=== PATIENT | male | born 1990 | race Caucasian/White ===

== ENCOUNTER 2024-02-22 15:57 | Emergency (ER) | payer OTHER, SELFPAY ==
[2024-02-22] VITALS (15 sets, daily range): BP systolic 125–158; BP diastolic 75–106; PULSE 56–73; RESP 16–20; TEMP 36.6; O2SAT 95–100; BMI 29.8
--- NOTE | 2024-02-22 16:11 | CRLHL7_ITS ---
For Patients: As a result of the Century Cures Act, medical imaging exams and procedure reports are released immediately into your electronic medical record. You may view this report before your referring provider. If you have questions, please contact your health care provider. INDICATION: PERIUMBILICAL PAIN CT ABDOMEN AND PELVIS WITH CONTRAST TECHNIQUE: Multidetector CT imaging was performed through the abdomen and pelvis following intravenous contrast administration using 108 mL Isovue 370. Coronal and sagittal reconstructions were generated. COMPARISON: None. FINDINGS: Lower chest: Trace amount of basilar atelectasis. Liver: Unremarkable aside from a tiny hypodensity in the right hepatic lobe on image 22 of series 2 which is not well characterized but likely benign. Gallbladder and bile ducts: No gallbladder wall thickening or calcified gallstones. No biliary dilation identified. Pancreas: Unremarkable. Spleen: Normal. Adrenals: No nodules or masses. Kidneys, ureters, and urinary bladder: No renal masses or hydronephrosis. No bladder mass or definite wall thickening. Gastrointestinal tract: Normal caliber bowel without wall thickening or obstruction. The appendix is normal. Abdominal wall: Tiny fat-containing umbilical hernia. Vascular structures: Normal for age. Peritoneum: No free air, abscess, or significant free fluid. Lymph nodes: No pathologically enlarged nodes identified. Reproductive organs: No pelvic masses. Bones: Normal for age. IMPRESSION: No acute abnormality identified. No cause for the patient`s symptoms is demonstrated. ELGIN CADET MD [facility] Dictated by Artur Cadet MD @ 02/22/2024 7:02:41 PM Please note that all CT scans at this facility use dose modulation, iterative reconstruction, and/or weight-based dosing when appropriate to reduce radiation dose to as low as reasonably achievable. Dictated by: Artur Cadet MD @ 02/22/2024 19:03:55 (Electronically Signed)
[2024-02-22 16:22] LABS: Lactate* 1.3 mmol/L (0.5-1.9)
[2024-02-22 16:25] LABS: Basophils Absolute Auto 0.01 K/uL (0.00-0.30); Basophils Percent Auto 0.1 % (0.0-3.0); Eosinophils Absolute Auto 0.01 K/uL (0.00-0.50); Eosinophils Percent Auto 0.1 % (0.0-7.0); Hematocrit 44.7 % (37.0-53.0); Hemoglobin* 16.3 gm/dL (13.5-17.5); Immature Granulocytes Abs Auto 0.09 K/uL (0.00-0.30); Immature Granulocytes Pct Auto 1.1 %; Lymphocytes Percent Auto 11.9 % (20-44); Mean Corpuscular HGB Conc 37 gm/dL (32-36); Mean Corpuscular Hemoglobin 29 pg (26-34); Mean Corpuscular Volume 79 fL (80-100); Monocytes Percent Auto 6.6 % (0.0-11.0); Neutrophils Percent Auto 80.2 % (42.0-72.0); Platelet Count* 312 K/uL (140-440); Red Blood Count 5.63 m/uL (4.30-5.90); White Blood Count* 7.98 K/uL (4.50-11.00)
[2024-02-22 16:29] LABS: Slide Review Reflex No
[2024-02-22] MEDS: 0.9 % SODIUM CHLORIDE 1000 ml 1,000 ML IV (16:35)
[2024-02-22] MEDS: MORPHINE 2 MG/ML inj IVP ×2 (16:35→18:08)
--- NOTE | 2024-02-22 16:35 | ED.GENADULT ---
HPI - General Adult General Chief complaint: Abdominal Pain Stated complaint: Suspected pancreatitis Time Seen by Provider: 02/22/24 15:59 Source: patient Mode of arrival: ambulatory Limitations: no limitations History of Present Illness HPI narrative: 33-year-old male coming in today complaining of abdominal pain that started yesterday. Pain is located in the periumbilical region. Does not radiate. Eating makes it worse. He has vomited twice now once yesterday once today. He denies any diarrhea. No blood in his stools or vomit. He denies any fevers or chills. He states that several years ago he had an episode of ?mild pancreatitis. He feels that the pain is similar but feels worse this time around. He denies any intra-abdominal surgeries in the past. He does state that he drinks socially however in the last 2 weeks he states he has been drinking 4 beers every night, this is well above his usual. He does not take any daily medications. Related Data Previous Rx's ?Medication ?Instructions ?Recorded ketorolac 10 mg tablet 10 mg PO TID PRN pain 3 days #9 02/22/24 tabs sucralfate 1 gram tablet (Carafate) 1 g PO QID PRN #30 tabs 02/22/24 Allergies Allergy/AdvReac Type Severity Reaction Status Date / Time No Known Drug Allergies Allergy Verified 02/22/24 17:27 Review of Systems Status of ROS: Reports: 10 or more systems reviewed and unremarkable except as noted in History and below Exam Narrative: Exam Narrative: Well-nourished well-developed patient moaning with a pillow over his face when I enter the room. Alert and oriented x3. Answers questions appropriately. Mood is appropriate. Thoughts are goal oriented and rational. No tangential or magical thinking noted. Patient speaks in full sentences without needing to catch his breath. HEENT: Normocephalic atraumatic. Pupils are equally round reactive to light. Extraocular muscles are intact. Conjunctivae are moist without any icterus noted. Moist mucous membranes. Posterior pharynx is normal. Neck is soft without any lymphadenopathy or thyromegaly. No masses are appreciated. Cardiovascular: Heart is regular rate and rhythm S1 and S2 are present without any murmurs. Lungs: Clear to auscultation bilaterally no wheezes rhonchi or rales are appreciated. Patient takes deep breaths without any discomfort. Abdomen: Soft and nondistended with slightly hypoactive bowel sounds. He does have a right-sided periumbilical tenderness, tenderness at McBurney's point. He has no right upper quadrant or right lower quadrant tenderness, no suprapubic pain or pain on the left side of the abdomen. He does have rebound tenderness. He also has discomfort with tapping of his feet. Extremities: Bilateral lower extremities are without edema. Skin: Well perfused without any obvious rashes. Const: Vital Signs, click to edit/add: Vital Signs - 24 hr 02/22/24 16:04 02/22/24 16:20 02/22/24 16:22 Temperature 97.9 F Pulse Rate 63 73 Pulse Rate [Pulse Oximeter] 69 Respiratory Rate 20 18 Blood Pressure 152/92 H Blood Pressure [Ri ght Upper Arm] 152/95 H Pulse Oximetry 100 100 100 Oxygen Delivery Me thod Room Air Room Air Room Air 02/22/24 16:30 02/22/24 16:36 02/22/24 17:00 Temperature Pulse Rate 63 67 56 L Pulse Rate [Pulse Oximeter] Respiratory Rate 16 Blood Pressure 150/75 H Blood Pressure [Ri ght Upper Arm] Pulse Oximetry 100 100 96 Oxygen Delivery Me thod Room Air Room Air Room Air 02/22/24 17:02 02/22/24 17:03 02/22/24 17:30 Temperature Pulse Rate 56 L 63 65 Pulse Rate [Pulse Oximeter] Respiratory Rate 18 Blood Pressure 146/80 H Blood Pressure [Ri ght Upper Arm] Pulse Oximetry 96 95 99 Oxygen Delivery Wv thod Room Air Room Air Room Air 02/22/24 17:32 02/22/24 18:31 02/22/24 18:32 Temperature Pulse Rate 69 57 L 57 L Pulse Rate [Pulse Oximeter] Respiratory Rate 18 Blood Pressure 125/106 H 158/97 H Blood Pressure [Ri ght Upper Arm] Pulse Oximetry 97 100 100 Oxygen Delivery Me thod Room Air Room Air Room Air Course Course ED Course: IV is established and patient given morphine and Zofran. Labs were ordered: Normal lactate CBC is unremarkable. Chemistries are unremarkable. LFTs are unremarkable. Normal lipase. CRP is less than 0.5. The patient stated that his pain was uncontrollable and requested more morphine so another 2 mg of morphine was given. Results of the abdominal CT returned, entirely normal. Discussed results with the patient who is very upset that nothing was found. He is also upset that he is not being sent home on pain medications. We discussed that we will send him home on Carafate and he should start omeprazole for potential gastritis. Patient requesting narcotic pain medications which is not indicated at this time. Vital Signs Vital signs: Initial Vital Signs Temperature 97.9 F 02/22/24 16:04 Temperature Source Temporal Artery Scan 02/22/24 16:04 Pulse Rate 69 02/22/24 16:04 Respiratory Rate 20 02/22/24 16:04 Blood Pressure 152/95 H 02/22/24 16:04 Blood Pressure Mean 114 H 02/22/24 16:04 Blood Pressure Position Sitting 02/22/24 16:04 Pulse Oximetry 100 02/22/24 16:04 Oxygen Delivery Method Room Air 02/22/24 16:04 Vital Signs Temperature 97.9 F 02/22/24 16:04 Pulse Rate 69 02/22/24 16:04 Respiratory Rate 20 02/22/24 16:04 Blood Pressure 152/95 H 02/22/24 16:04 Pulse Oximetry 100 02/22/24 16:04 Oxygen Delivery Method Room Air 02/22/24 16:04 Temperature 97.9 F 02/22/24 16:04 Pulse Rate 57 L 02/22/24 18:32 Respiratory Rate 18 02/22/24 18:32 Blood Pressure 158/97 H 02/22/24 18:32 Pulse Oximetry 100 02/22/24 18:32 Oxygen Delivery Method Room Air 02/22/24 18:32 Medications Administered Medications: Discontinued Medications Generic Name Dose Route Start Last Admin Trade Name Freq PRN Reason Stop Dose Admin Sodium Chloride 1,000 mls @ 1,000 mls/hr 02/22/24 16:15 02/22/24 19:06 0.9 % Sodium Chloride 1000 Ml IV 02/22/24 17:14 Infused .Q1H PRICE Infusion Morphine Sulfate 2 mg 02/22/24 16:11 02/22/24 16:35 Morphine 2 Mg/Ml Inj IVP 02/22/24 16:12 2 mg ONCE ONE Administration Morphine Sulfate 2 mg 02/22/24 17:53 02/22/24 18:08 Morphine 2 Mg/Ml Inj IVP 02/22/24 17:54 2 mg ONCE ONE Administration Ondansetron HCl 4 mg 02/22/24 16:39 02/22/24 16:42 Ondansetron 2 Mg/Ml Inj IVP 02/22/24 16:40 4 mg ONCE ONE Administration Ondansetron HCl 2 mg 02/22/24 17:58 02/22/24 18:06 Ondansetron 2 Mg/Ml Inj IVP 02/22/24 17:59 2 mg ONCE ONE Administration Medical Decision Making MDM Narrative Medical decision making narrative: 33-year-old male with abdominal pain of unclear etiology. There are no laboratory or imaging abnormalities to suggest any life-threatening diagnoses today. We discussed the possibility of peptic ulcer disease, gastritis. At this time recommend symptomatic treatment. Patient will be sent home with Carafate and omeprazole. We discussed follow-up if things worsen. Patient was in agreement and had no other questions. Lab Data Lab results reviewed: Yes I reviewed the patient's lab results Labs: Lab Results 02/22/24 02/22/24 02/22/24 Range/Units 16:15 16:34 19:05 WBC 7.98 (4.50-11.00) K/uL RBC 5.63 (4.30-5.90) m/uL Hgb 16.3 (13.5-17.5) gm/dL Hct 44.7 (37.0-53.0) % MCV 79 L (80-100) fL MCH 29 (26-34) pg MCHC 37 H (32-36) gm/dL RDW Coeff of Maryellen 12.0 (11.5-15.5) % Plt Count 312 (140-440) K/uL Neut % (Auto) 80.2 H (42.0-72.0) % Lymph % (Auto) 11.9 L (20-44) % O'Brien % (Auto) 6.6 (0.0-11.0) % Eos % (Auto) 0.1 (0.0-7.0) % Baso % (Auto) 0.1 (0.0-3.0) % Neut # (Auto) 6.40 (1.7-7.0) K/uL Lymph # (Auto) 0.90 (0.90-2.90) K/uL O'Brien # (Auto) 0.50 (0.00-0.90) K/UL Eos # (Auto) 0.01 (0.00-0.50) K/uL Baso # (Auto) 0.01 (0.00-0.30) K/uL Abs Immat Gran (auto) 0.09 (0.00-0.30) K/uL Imm/Tot Granulo (auto) 1.1 % Sodium 135 (135-149) mmol/L Potassium 3.8 (3.6-5.1) mmol/L Chloride 102 (96-114) mmol/L Carbon Dioxide 25 (20-32) mmol/L Anion Gap 8 (7-15) mEq/L BUN 15 (5-24) mg/dL Creatinine 0.9 (0.5-1.5) mg/dL Estimated Creat Clear 129.33 Estimated GFR 116 ml/min Glucose 119 H (60-115) mg/dL Lactate 1.3 (0.5-1.9) mmol/L Calcium 9.6 (8.4-10.6) mg/dL Total Bilirubin 1.1 (0.1-1.5) mg/dL Direct Bilirubin 0.4 (0.0-0.5) mg/dL AST 37 H (12-35) U/L ALT 42 (4-50) U/L Alkaline Phosphatase 82 (40-150) U/L C-Reactive Protein < 0.5 L (0.5-1.0) mg/dL Total Protein 7.4 (6.0-8.3) g/dL Albumin 5.0 (3.3-5.0) g/dL Lipase 53 (23-300) U/L Urine Color Yellow (Yellow) Urine Appearance Clear (Clear) Urine pH 6.5 (5.0-8.5) Ur Specific [place] <= 1.005 (1.000-1.030) Urine Protein Negative (Negative) Urine Glucose (UA) Negative (Negative) Urine Ketones 2+ A (Negative) Urine Blood Negative (Negative) Urine Nitrite Negative (Negative) Urine Bilirubin Negative (Negative) Urine Urobilinogen 0.2 (0.2-1.0) Ur Leukocyte Esterase Negative (Negative) Urine RBC 0-2 (0-2) Urine WBC 0-2 (0-5) Ur Squamous Epith Cells None (None-Few) Urine Bacteria None (None) Ethyl Alcohol < 0.01 L (0.01-0.03) % Imaging Data CT scan - abdomen: Attestation: I have reviewed the pertinent imaging results. Radiologist's impression: CT ABDOMEN AND PELVIS WITH CONTRAST TECHNIQUE: Multidetector CT imaging was performed through the abdomen and pelvis following intravenous contrast administration using 108 mL Isovue 370. Coronal and sagittal reconstructions were generated. COMPARISON: None. FINDINGS: Lower chest: Trace amount of basilar atelectasis. Liver: Unremarkable aside from a tiny hypodensity in the right hepatic lobe on image 22 of series 2 which is not well characterized but likely benign. Gallbladder and bile ducts: No gallbladder wall thickening or calcified gallstones. No biliary dilation identified. Pancreas: Unremarkable. Spleen: Normal. Adrenals: No nodules or masses. Kidneys, ureters, and urinary bladder: No renal masses or hydronephrosis. No bladder mass or definite wall thickening. Gastrointestinal tract: Normal caliber bowel without wall thickening or obstruction. The appendix is normal. Abdominal wall: Tiny fat-containing umbilical hernia. Vascular structures: Normal for age. Peritoneum: No free air, abscess, or significant free fluid. Lymph nodes: No pathologically enlarged nodes identified. Reproductive organs: No pelvic masses. Bones: Normal for age. IMPRESSION: No acute abnormality identified. No cause for the patient`s symptoms is demonstrated. ELGIN CADET MD Discharge Plan Discharge Clinical Impression: Abdominal pain, Gastritis Patient Disposition: Home, Self-Care Condition: Unchanged Additional Instructions: Because of your abdominal pain is unclear today. Your lab work was normal and there was no evidence of any abnormalities found on your abdominal CT scan. Sometimes pain of this nature can be caused by an erosion or ulceration on the lining of the stomach. Recommend you take the prescribed medication as needed- this will line your stomach and provide relief, okay to use Tylenol as needed, okay to use a heating pad to the abdominal wall as needed, do not apply heat directly to skin. Do not use ibuprofen. You also need to start taking daily omeprazole-this can be purchased [id number]. Follow-up with your primary care provider if you feel like you are not getting better. Return to the emergency room if you feel like you are getting worse or you develop a fever. Prescriptions: New ketorolac 10 mg tablet 10 mg PO TID PRN (Reason: pain) 3 Days Qty: 9 0RF sucralfate [Carafate] 1 gram tablet 1 g PO QID PRNQty: 30 0RF Follow Up/Referrals: Provider,Not a Local [Primary Care Provider] - Stand Alone Forms: [facility] Info Instructions
[2024-02-22] MEDS: ONDANSETRON 2 MG/ML inj 4 MG IVP (16:42)
[2024-02-22 16:51] LABS: Chloride* 102 mmol/L (96-114); Sodium* 135 mmol/L (135-149)
[2024-02-22 16:52] LABS: Potassium* 3.8 mmol/L (3.6-5.1)
[2024-02-22 16:53] LABS: Creatinine* 0.9 mg/dL (0.5-1.5); Est. Creatinine Clearance* 129.33; Estimated Glomerular Filt Rate 116 ml/min
[2024-02-22 16:54] LABS: Alkaline Phosphatase* 82 U/L (40-150); Anion Gap 8 mEq/L (7-15); Aspartate Amino Transferase* 37 U/L (12-35); Bilirubin Direct* 0.4 mg/dL (0.0-0.5); Bilirubin Total* 1.1 mg/dL (0.1-1.5); Blood Urea Nitrogen* 15 mg/dL (5-24); Carbon Dioxide* 25 mmol/L (20-32); Glucose* 119 mg/dL (60-115); Lipase* 53 U/L (23-300); Total Protein* 7.4 g/dL (6.0-8.3)
[2024-02-22 16:55] LABS: Alanine Aminotransferase* 42 U/L (4-50); Calcium* 9.6 mg/dL (8.4-10.6)
[2024-02-22 16:57] LABS: C Reactive Protein* < 0.5 mg/dL (0.5-1.0)
[2024-02-22] MEDS: ONDANSETRON 2 MG/ML inj IVP (18:06)
[2024-02-22 19:10] LABS: Appearance Urine Clear (Clear); Bilirubin Urine Negative (Negative); Blood Urine Negative (Negative); Color Urine Yellow (Yellow); Glucose Urine Negative (Negative); Ketones Urine 2+ (Negative); Leukocyte Esterase Urine Negative (Negative); Nitrite Urine Negative (Negative); Protein Urine Negative (Negative); Specific Gravity Urine <= 1.005 (1.000-1.030); Urobilinogen Urine 0.2 (0.2-1.0); pH Urine 6.5 (5.0-8.5)
[2024-02-22 19:18] LABS: Ethanol* < 0.01 % (0.01-0.03)
[2024-02-22 19:33] LABS: RBC Urine 0-2 (0-2); WBC Urine 0-2 (0-5)
[2024-02-22] MEDS: GI COCKTAIL (VISC LIDO/ANTACID) 30 ML PO (19:54)
--- NOTE | 2024-02-22 20:00 | ED.NURSE ---
Tordal rx cancelled, per MD order.
== END 2024-02-22 20:01 | disposition home or self-care (01) ==
PROVIDERS: Emergency Provider Family Medicine
DX: R10.9 Unspecified abdominal pain (principal); K29.70 Gastritis, unspecified, without bleeding
CPT/HCPCS: 36415; 74177; 80048; 80076; 81001; 82077; 83605; 83690; 85025; 86140; 96361; 96374; 96375; 96376; 99284; 99285; A9270; J2270; J2405; J7030; Q9967